=== PATIENT | female | born 1950 | race Caucasian/White ===

== ENCOUNTER 2021-05-31 09:16 | Emergency (ER) | payer SELFPAY ==
[2021-05-31 09:37] VITALS: BMI 27.4
[2021-05-31] MEDS ORDERED: SOTROVIMAB 500 MG in SODIUM CHLORIDE 100 ML IVPB ONE (09:37)
[2021-05-31 13:05] VITALS: BP 142/72; PULSE 79; TEMP 98.7
== END 2021-05-31 14:00 | disposition home or self-care (01) ==
LOC: JCOVINFU 09:16 → JER 09:16 → JCOVINFU 14:00
DX: U07.1 COVID-19 (principal)
CPT/HCPCS: 99284-25; M0247; Q0247